=== PATIENT | male | born 1970 | race Caucasian/White ===

== ENCOUNTER → 2016-12-12 | Outpatient (CLI) | payer BC ==
--- NOTE | 2016-12-12 11:12 | XR ---
EXAMINATION TYPE: XR orbit detect foreign body DATE OF EXAM: 12/12/2016 COMPARISON: NONE HISTORY: Pre-MRI, possible metallic foreign body. TECHNIQUE: Orbital series with water's and [place] frontal view as well as lateral view. FINDINGS: No metallic intraorbital foreign body is identified to prevent MRI study. IMPRESSION: As above.
== END | disposition home or self-care (01) ==
LOC: RADXRMAIN 10:31
PROVIDERS: ATTEND Orthopaedic Surgery
DX: Z01.818 Encounter for other preprocedural examination (principal); H05.50 Retained (old) foreign body following penetrating wound of unspecified orbit
CPT/HCPCS: 70030